=== PATIENT | male | born 1985 | race African-American/Black ===

== ENCOUNTER 2020-04-07 17:54 | Emergency (ER) | payer SELFPAY ==
[~2020-04-07] VITALS: Ht 172.7 cm; Wt 77.1 kg
--- OUTSIDE RECORDS SUMMARY | 2020-04-07 19:08 | XMS REPORT | Continuity of Care Document ---
Author Author [facility] t Organization [facility] Address [address] [place] [address] Phone Unavailable Care Team Providers Care Unit Manager Rn Name Role Phone NO, PCP PCP Unavailable Guero VELAZCO, Chaz Sandoval Attphys Problems Condition Name Condition Details Condition Category Status Onset Date Resolution Date Last Treatment Date Treating Clinician Comments Source Dysphagia Dysphagia Disease Active 2018-12-26 00:00:00 [facility] RUQ abdominal pain RUQ abdominal pain Disease Active 2017-10-09 00:00:0 0 [facility] Right flank pain Right flank pain Disease Active 2017-01-21 00:00:00 [facility] Hematuria Hematuria Disease Active 2017-01-13 00:00:00 [facility] Renal stones Renal stones Disease Active [facility] Neck pain Neck pain Disease Active [facility] Allergies, Adverse Reactions, Alerts This patient has no known allergies or adverse reactions. Family History Family Member Diagnosis Comments Start Date Stop Date Source Natural mother Cancer [facility] Social History Social Habit Start Date Stop Date Quantity Comments Source History of tobacco use Cigarette Smoker [facility] Alcohol Std Drinks Formerly [facility] SDOH Alcohol Binge [facility] Sex Assigned At [facility] Alcohol intake 2019-06-27 00:00:00 2019-06-27 00:00:00 Lifetime non-drinker (finding) [facility] History SDOH Food Worry 2019-05-29 00:00:00 2019-05-29 00:00:00 2 [facility] History SDOH Food Scarcity 2019-05-29 00:00:00 2019-05-29 00:00:00 2 [facility] SDOH Alcohol Frequency 2018-12-26 00:00:00 2018-12-26 00:00:0 0 1 [facility] Tobacco Comment 2018-12-26 00:00:00 2018-12-26 00:00:00 4 cigarettes/ day [facility] Smoking Status Start Date Stop Date Source Current every day smoker 2019-06-27 00:00:00 [facility] Medications Ordered Medication Name Filled Medication Name Start Date Stop Da te Current Medication? Ordering Clinician Indication Dosage Frequency Signature (SIG) Comments Components Source acetaminophen-codeine (TYLENOL/CODEINE #3) 300-30 mg per tab let 2017-01-21 00:00:00 Yes Right flank pain 1{tbl} Demetrius e 1 tablet by mouth every 4 hours as needed for Pain. [facility] ibuprofen (MOTRIN) 800 mg tablet 2017-01-13 00:00:00 Yes Kidney stones 800mg Take 1 tablet by mouth every 8 hours as needed for [facility] Vital Signs Vital Name Observation Time Observation Value Comments Source Systolic blood pressure 2019-06-27 10:47:00 136 mm[Hg] [facility] Diastolic blood pressure 2019-06-27 10:47:00 85 mm[Hg] [facility] Heart rate 2019-06-27 10:47:00 98 /min [facility] Body temperature 2019-06-27 10:47:00 35.89 Kayl[facility] Respiratory rate 2019-06-27 10:47:00 16 /min [facility] Body height 2019-06-27 10:47:00 172.7 cm [facility] Body weight 2019-06-27 10:47:00 66.497 kg [facility] BMI 2019-06-27 10:47:00 22.29 kg/m2 [facility] Procedures Procedure Date / Time Performed Performing Clinician Souranitha e URINALYSIS 2019-06-26 13:50:00 Lori Jack [facility] COMPREHENSIVE METABOLIC PANEL 2019-06-26 13:50:00 Saw Jack [facility] CBC/DIFF 2019-06-26 13:50:00 Lori Jack [facility] URINALYSIS 2019-06-26 13:50:00 Lori Jack [facility] CBC 2019-06-26 13:50:00 [facility] 2019-05-29 13:58:00 Lori Jack [facility] CHLAM/GC DNA AMPLI 2019-05-29 13:58:00 Lori Jack Kareen [facility] TRICHOMONAS VAGINALIS 2019-05-29 13:58:00 Lori Jack Johnson rris [facility] URINALYSIS 2019-05-29 13:58:00 Lori Jack [facility] CBC/DIFF 2019-05-29 12:39:00 Lori Jack [facility] COMPREHENSIVE METABOLIC PANEL 2019-05-29 12:39:00 Saw Jack [facility] LIPID PROFILE 2019-05-29 12:39:00 Lori Jack [facility] THYROID STIMULATING HORMONE (TSH) 2019-05-29 12:39:00 JackPatricia yap [facility] SYPHILIS SCREEN FOR INFECTION 2019-05-29 12:39:00 Saw Jack [facility] HEPATITIS PANEL 2019-05-29 12:39:00 Lori Jack [facility] HEMOGLOBIN A1C 2019-05-29 12:39:00 Lori Jack [facility] CBC 2019-05-29 12:39:00 Lori Jack [facility] GLUCOSE POC 2019-05-29 12:09:00 Unknown, [facility] POC RAPID HIV 2019-05-29 00:00:00 Lori Jack [facility] Plan of Care Planned Activity Planned Date Details Comments Source Future Scheduled Test 2020-04-10 00:00:00 IMM Influenza Seas onal Apr to September (>/= 19 yrs) [code = IMM Influenza Seasonal Apr to September (>/= 19 yrs)] [facility] Encounters Start Date/Time End Date/Time Encounter Type Admission Type Attendi [facility] Care Department Encounter ID Source 2019-07-14 13:40:00 2019-07-14 15:24:00 Departed Emergency Room [facility] [id number] [facility] 2019-06-27 10:40:56 2019-06-27 10:40:56 Outpatient [facility] [id number] [facility] 2019-06-26 13:49:44 2019-06-26 13:49:44 Outpatient [facility] [id number] [facility] 2019-06-26 13:17:55 2019-06-26 13:17:55 Outpatient [facility] [id number] [facility] 2019-06-26 00:00:00 2019-06-26 00:00:00 Outpatient [facility] [id number] [facility] 2019-05-29 12:39:02 2019-05-29 12:39:02 Outpatient [facility] [id number] [facility] 2019-05-29 11:54:58 2019-05-29 11:54:58 Outpatient [facility] [id number] [facility] 2019-05-29 00:00:00 2019-05-29 00:00:00 Outpatient [facility] [id number] [facility] 2018-12-26 11:51:04 2018-12-26 11:51:04 Emergency [facility] [id number] [facility] 2018-12-26 09:21:28 2018-12-26 09:21:28 Emergency [facility] [id number] [facility] 2018-11-14 15:06:06 2018-11-14 15:06:06 Emergency [facility] [id number] [facility] 2017-10-14 10:54:48 2017-10-14 10:54:48 Emergency [facility] [id number] [facility] 2017-10-13 19:30:00 2017-10-13 19:30:00 Emergency [facility] [id number] [facility] 2017-10-09 01:41:20 2017-10-09 01:41:20 Emergency [facility] [id number] [facility] 2017-10-09 00:08:00 2017-10-09 00:08:00 Emergency [facility] [id number] [facility] 2017-10-07 00:26:00 2017-10-07 00:26:00 Emergency [facility] [id number] [facility] 2017-06-30 12:07:12 2017-06-30 12:07:12 Outpatient [facility] [id number] [facility] 2017-01-21 14:42:47 2017-01-21 14:42:47 Emergency [facility] [id number] [facility] 2017-01-13 04:32:58 2017-01-13 04:32:58 Emergency [facility] [id number] [facility] 2017-01-13 03:36:25 2017-01-13 03:36:25 Emergency [facility] [id number] [facility] Results Test Description Test Time Test Comments Results Result Comments Source Urine Color 2019-07-14 14:24:00 Test Item Urine Color (test code = 5778-6) [facility] X[facility]-07-28 14:24:00* Test Item Value Reference Range Interpretation Comments Urine Clarity (test code = 66300-5) SL CLOUDY CLEAR H [facility] Specific [id number] 14:24:00 * Test Item Value Reference Range Interpretation Comments Urine Specific [place] (test code = 5811-5) 1.005 1.010-1.02 5 L [facility] [id number] 14:24:00* Test Item Value Reference Range Interpretation Comments Urine pH (test code = 77467-7) 6 5-7 [facility] Leukocyte [id number] 14:24:00* Test Item Value Reference Range Interpretation Comments Urine Leukocyte Esterase (test code = 5799-2) NEGATIVE NEGATIVE [facility] [id number] 14:24:00* Test Item Value Reference Range Interpretation Comments Urine Nitrite (test code = 44571-4) NEGATIVE NEGATIVE [facility] [id number] 14:24:00* Test Item Value Reference Range Interpretation Comments Urine Protein (test code = 5804-0) NEGATIVE NEGATIVE [facility] Glucose (UA)2019-07-14 14:24:00* Test Item Value Reference Range Interpretation Comments Urine Glucose (UA) (test code = 2349-9) NEGATIVE NEGATIVE [facility] [id number] 14:24:00* Test Item Value Reference Range Interpretation Comments Urine Ketones (test code = 24711-7) NEGATIVE NEGATIVE [facility] [id number] 14:24:00* Test Item Value Reference Range Interpretation Comments Urine Urobilinogen (test code = 57281-8) 0.2 0.2-1 [facility] [id number] 14:24:00* Test Item Value Reference Range Interpretation Comments Urine Bilirubin (test code = 1978-6) NEGATIVE NEGATIVE [facility] [id number] 14:24:00* Test Item Value Reference Range Interpretation Comments Urine Blood (test code = 48993-3) NEGATIVE NEGATIVE [facility] [id number] 14:24:00* Test Item Value Reference Range Interpretation Comments Urine WBC (test code = 5821-4) 0-5 0-5 [facility] [id number] 14:24:00* Test Item Value Reference Range Interpretation Comments Urine RBC (test code = 21385-1) 0-5 0-5 [facility] [id number] 14:24:00* Test Item Value Reference Range Interpretation Comments Urine Bacteria (test code = 55644-4) RARE NONE [facility] Epithelial [id number] 14:24:00 * Test Item Value Reference Range Interpretation Comments Urine Epithelial Cells (test code = 52250-9) FEW NONE [facility] RAPID [id number] 00:00:00* Test Item Value Reference Range Interpretation Comments Rapid HIV Result (test code = 8988) negative Rapid HIV Control (test code = 8989) pass [facility]
--- OUTSIDE RECORDS SUMMARY | 2020-04-07 19:08 | XMS REPORT | Clinical Summary ---
Author Author [facility] ict Organization [facility] ict Address Unknown Phone Unavailable Care Team Providers Care Bin Piler Name Role Phone Lori Jack ASSOCIATE PROFESSOR OF FORESTRY PCP Allergies No Known Allergies Medications End Date Status Medication Sig Dispensed Refills Start Date Active ibuprofen (MOTRIN) 800 mg Take 1 tablet 30 tablet 0 tabletIndications: by mouth 7 Hematuria, Kidney stones every 8 hours as needed for Pain. Active acetaminophen-codeine Take 1 tablet 15 tablet 0 (TYLENOL/CODEINE #3) by mouth 7 300-30 mg per every 4 hours tabletIndications: Right as needed for flank pain Pain. Active Problems Problem Noted Date Dysphagia 12/26/2018 RUQ abdominal pain 10/09/2017 Right flank pain 01/21/2017 Hematuria 01/13/2017 Renal stones Neck pain Encounters Care Team Description Date Type Specialty Lori Jack NP Encounter to discuss test results (Prima ry Dx); Abnormal urinalysis; Hematuria, unspecified type; History of renal stone; BMI 22.0-22.9, adult; Homeless 06/27/2019 Office Visit Family Practice Lori Jack NP 06/27/2019 Orders Only Family Practice Lori Jack NP Abnormal CBC (Primary Dx); Encounter to discuss test results; Hx of hematuria - per pt report - negative in May; Tobacco abuse; BMI 21.0-21.9, adult; Homeless 06/26/2019 Office Visit Family Practice Lori Jack NP Physical exam (Primary Dx); Renal stones, right - hx; NAFL (nonalcoholic fatty liver) - hx; Preventative health care; BMI 21.0-21.9, adult; Homeless; Tobacco use disorder; Tachycardia 05/29/2019 Office Visit Family Practice after 04/07/2019 Immunizations Name Administration Dates Next Due Influenza, 05/29/2019 (Deferred: Patie nt Refused) Vaccine<FLUCELVAX>(Multi- Dose) PPD 05/29/2019 (Deferred: Other ) Family History Medical History Relation Name Comments Cancer Mother Relation Name Status Comments Father Mother Social History Date Tobacco Use Types Packs/Day Years Used Current Every Day Smoker Cigarettes Smokeless Tobacco: Never Used Comments: 4 cigarettes/day Drinks/Week oz/Week Comments Alcohol Use Never Alcohol Habits Answer Date Recorded How often do you have a drink containing alcohol? Never 12/26/2018 How many drinks containing alcohol do you have on No t asked a typical day when you are drinking? How often do you have six or more drinks on one Not asked occasion? Food Insecurity Answer Date Recorded Within the past 12 months, you worried that your Sometimes true 05/29/2019 food would run out before you got money to buy more. Within the past 12 months, the food you bought Sometimes t rue 05/29/2019 just didn't last and you didn't have mo caty to get more. Sex Assigned at Date Recorded Not on file Industry Job Start Date Occupation Not on file Not on file Not on file Travel End Travel History Travel Start No recent travel history available. Last Filed Vital Signs Reading Time Taken Comments Vital Sign 136/85 06/27/2019 10:47 AM IRIDOLOGIST Blood Pressure 98 06/27/2019 10:47 AM IRIDOLOGIST Pulse 35.9 C (96.6 F) 06/27/2019 10:47 AM IRIDOLOGIST Temperature 16 06/27/2019 10:47 AM IRIDOLOGIST Respiratory Rate - - Oxygen Saturation - - Inhaled Oxygen Concentration 66.5 kg (146 lb 9.6 oz) 06/27/2019 10:47 AM IRIDOLOGIST Weight 172.7 cm (5' 8") 06/27/2019 10:47 AM IRIDOLOGIST Height 22.29 06/27/2019 10:47 AM IRIDOLOGIST Body Mass Index Plan of Treatment Health Maintenance Due Date Last Done Comments IMM Influenza Seasonal 04/10/2020Apr to September (>/= 19 yrs) Goals Goal Patient Associated Recent Progress Patient-Stat Aut hor Goal Type Problems ed? Obtain more stable housing Lifestyle On track (06/27/2019 No Wilian, situation 10:47 AM IRIDOLOGIST) Ellie Rodney LVN Procedures Comments Procedure Name Priority Date/Time Associated Diag nosis CBC Routine 06/26/2019 Abnormal CBC 1:50 PM IRIDOLOGIST URINALYSIS Routine 06/26/2019 Abnormal CBC 1:50 PM IRIDOLOGIST CBC/DIFF Routine 06/26/2019 Abnormal CBC 1:50 PM IRIDOLOGIST COMPREHENSIVE METABOLIC Routine 06/26/2019 Abnorm al CBC PANEL 1:50 PM IRIDOLOGIST URINALYSIS Routine 06/26/2019 Abnormal CBC 1:50 PM IRIDOLOGIST URINALYSIS Routine 05/29/2019 Preventative he alth care 1:58 PM IRIDOLOGIST TRICHOMONAS VAGINALIS Routine 05/29/2019 Preventa tive health care 1:58 PM IRIDOLOGIST CHLAM/GC DNA AMPLI Routine 05/29/2019 Preventativ e health care 1:58 PM IRIDOLOGIST URINALYSIS Routine 05/29/2019 Preventative he alth care 1:58 PM IRIDOLOGIST CBC Routine 05/29/2019 Preventative he alth care 12:39 PM IRIDOLOGIST HEMOGLOBIN A1C Routine 05/29/2019 Preventative he alth care 12:39 PM IRIDOLOGIST HEPATITIS PANEL Routine 05/29/2019 Preventative h ealth care 12:39 PM IRIDOLOGIST SYPHILIS SCREEN FOR Routine 05/29/2019 Preventati ve health care INFECTION 12:39 PM IRIDOLOGIST THYROID STIMULATING Routine 05/29/2019 Preventati ve health care HORMONE (TSH) 12:39 PM IRIDOLOGIST LIPID PROFILE Routine 05/29/2019 Preventative he alth care 12:39 PM IRIDOLOGIST COMPREHENSIVE METABOLIC Routine 05/29/2019 Preven tative health care PANEL 12:39 PM IRIDOLOGIST CBC/DIFF Routine 05/29/2019 Preventative he alth care 12:39 PM IRIDOLOGIST GLUCOSE POC Routine 05/29/2019 12:09 PM IRIDOLOGIST POC RAPID HIV Routine 05/29/2019 Preventative he alth care after 04/07/2019 Results * CBC/Diff (06/26/2019 1:50 PM IRIDOLOGIST) Only the most recent of 2 results within the time period is included. WBC 7.2 4.5 - 12.0 K/uL [facility] RBC 4.73 4.60 - 6.20 M/uL [facility] Hemoglobin 14.6 14.0 - 18.0 g/dL [facility] Hematocrit 46.7 40.0 - 54.0 % [facility] MCV 98.7 (H) 82.0 - 92.0 fL [facility] MCH 30.9 27.0 - 31.0 pg [facility] MCHC 31.3 (L) 32.0 - 36.0 g/dL [facility] RDW 44.8 (H) 35.1 - 43.9 fL [facility] Platelet 253 150 - 400 K/uL [facility] Mean Platelet 9.9 9.4 - 12.4 fL [facility] Volume [facility] Percent NRBC 0.0 % [facility] Neutrophil 47.7 34.0 - 67.9 % [facility] Lymphs 41.0 21.8 - 50.0 % [facility] Monocytes 8.2 5.3 - 12.0 % [facility] Eos 2.6 0.8 - 5.0 % [facility] Basos 0.4 0.2 - 1.2 % [facility] Immature 0.1 0.0 - 0.5 % [facility] Granulocytes [facility] Neutrophils 3.42 1.78 - 5.36 K/uL [facility] (Absolute) [facility] Lymphs 2.95 1.32 - 3.57 K/uL [facility] (Absolute) [facility] Monocytes(Absol 0.59 0.30 - 0.82 K/uL [facility] roe) [facility] Eos (Absolute) 0.19 0.04 - 0.54 K/uL [facility] Baso (Absolute) 0.03 0.01 - 0.08 K/uL [facility] Immature Grans 0.01 0.00 - 0.03 K/uL [facility] (Abs) [facility] Absolute NRBC 0.00 K/uL [facility] Specimen Blood Performing Organization Address [facility] Ph one Number [facility] [address] [place] [address] * Urinalysis (06/26/2019 1:50 PM IRIDOLOGIST) Only the most recent of 2 results within the time period is included. Color Yellow Colorless, Straw, [facility] Yellow [facility] Clarity Clear Clear [facility] Spec [place], 1.016 1.001 - 1.035 [facility] pH, Ur 6.0 5.0 - 8.0 [facility] Protein, Ur Negative Negative mg/dL [facility] Glucose, Ur Negative Negative mg/dL [facility] Ketone, Ur Negative Negative mg/dL [facility] Bilirubin, Ur Negative Negative mg/dL [facility] Nitrite, Ur Negative Negative [facility] Leukocyte Negative Negative mg/dL [facility] Blood, Ur 2+ (A) Negative mg/dL [facility] RBC 4 0 - 4 /HPF [facility] WBC <1 0 - 5 /HPF [facility] Mucous Present (A) None seen /HPF [facility] Urobilinogen, <1.0 <1.0 EU/dL [facility] Specimen Urine Performing Organization Address [facility] one Number [facility] [address] [place] [address] * Comprehensive Metabolic Panel (06/26/2019 1:50 PM IRIDOLOGIST) Only the most recent of 2 results within the time period is included. Sodium 145 136 - 145 mmol/L [facility] Potassium 4.3 3.5 - 5.1 mmol/L [facility] Chloride 106 98 - 107 mmol/L [facility] CO2 29 21 - 31 mmol/L [facility] Glucose 98 70 - 110 mg/dL [facility] Calcium 9.3 8.6 - 10.3 mg/dL [facility] Urea Nitrogen 8.0 7.0 - 25.0 mg/dL [facility] Creatinine 1.0 0.7 - 1.3 mg/dL [facility] Alkaline 48 34 - 104 U/L [facility] Phosphatase [facility] ALT 9 7 - 52 U/L [facility] AST 21 13 - 39 U/L [facility] Bilirubin, 1.9 (H) 0.2 - 1.2 mg/dL [facility] Total [facility] Total Protein 6.5 6.0 - 8.3 g/dL [facility] eGFR If Africn >90 >=90 mL/min/1.73 m2 [facility] Am [facility] Albumin 4.4 4.2 - 5.5 g/dL [facility] Anion Gap 10 5 - 16 mmol/L [facility] Specimen Blood Performing Organization Address [facility] one Number [facility] [address] [place] [address] * Trichomonas vaginalis (05/29/2019 1:58 PM IRIDOLOGIST) [facility] Trich Vaginalis Negative Negative [facility] Specimen Urine - Voided, urine Narrative Performed At Disclaimer: This test utilizes Cued erma red APTIMA Trichomanas vaginalis Assay by [facility] TMA from [employer] for qual itative nucleic acid amplification test (NAAT) for the detection of ribosome RN A (rRNA) from Trichomonas vaginalis. Performing Organization Address [facility] one Number [facility] [address] [place] [address] [phone] * CHLAM/GC DNA AMPLI [CHGC] (05/29/2019 1:58 PM IRIDOLOGIST) [facility] Chlamydia Negative Negative [facility] trachomatis [facility] N. gonorrhoeae Negative Negative [facility] Specimen Urine - Voided, urine Narrative Performed At This test utilizes [employer] Aptima Combo 2 Assay for target amplification of rRNA [facility] for the qualitative detection of Chlamy antolin trachomatis and Neisseria gonorrhoeae. Performing Organization Address [facility] one Number [facility] [address] [place] [address] * Syphilis Screen for Infection (05/29/2019 12:39 PM IRIDOLOGIST) [facility] TPA Negative Negative, Equivocal [facility] Final Report Negative Negative [facility] Specimen Blood Performing Organization Address [facility] one Number [facility] [address] [place] [address] * Hemoglobin A1C (05/29/2019 12:39 PM IRIDOLOGIST) [facility] Hemoglobin A1c 5.0 4.3 - 6.1 % [facility] Estimated 97 70 - 110 mg/dL [facility] Average Glucose [facility] Specimen Blood Performing Organization Address [facility] one Number [facility] [address] [place] [address] * TSH [Thyroid Stimulating Hormone] (05/29/2019 12:39 PM IRIDOLOGIST) [facility] TSH 1.54 0.45 - 5.33 uIU/mL [facility] Specimen Blood Performing Organization Address [facility] one Number [facility] [address] [place] [address] * Lipid Profile (05/29/2019 12:39 PM IRIDOLOGIST) [facility] Cholesterol 174.0 <=200.0 mg/dL [facility] Triglyceride 87 <150 mg/dL [facility] HDL 63.0 See Reference Range [facility] Narrative. mg/dL [facility] LDL 94 <100 mg/dL [facility] Comment: [facility] Optimal: < 100.0 mg/dL Near Optimal: 120-129 mg/dL Borderline: 130-159 mg/dL High: 160-189 mg/dL Very High: >=190 mg/dL Patient No [facility] Fasting? [facility] Specimen Blood Narrative Performed At Patient is not fasting. For a triglyceride result gre ater than 440 mg/dL, [facility] consider re-testing when the patient is in a fasting state. Performing Organization Address [facility] one Number [facility] [address] [place], [place] [id number] [phone] * Hepatitis Panel (05/29/2019 12:39 PM IRIDOLOGIST) [facility] Hepatitis C Negative Negative [facility] Virus (HCV) [facility] Antibody Hep B Surface Negative Negative [facility] Ag [facility] Hep A Vir Ab Negative Negative [facility] IgM [facility] Hep B Core Ab Negative Negative [facility] IgM [facility] Specimen Blood Performing Organization Address [facility] one Number [facility] [address] [place], [place] [id number] * POCT GLUCOSE POC docked device (05/29/2019 12:09 PM IRIDOLOGIST) [facility] Glucose POC 60 (L) 74 - 106 mg/dL [facility] Specimen Blood Performing Organization Address [facility] one Number [facility] [place] [address] LABORATORY [facility] [address] [place] [address] LABORATORY * POC RAPID HIV (05/29/2019) Rapid HIV negative Result Rapid HIV pass Control Specimen Blood after 04/07/2019
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
[2020-04-07 20:30] VITALS: BP 119/81
== END 2020-04-07 20:39 | disposition home or self-care (01) ==
LOC: ER 19:06
DX: S39.012A Strain of muscle, fascia and tendon of lower back, initial encounter (principal); M25.552 Pain in left hip; W18.30XA Fall on same level, unspecified, initial encounter; Y04.0XXA Assault by unarmed brawl or fight, initial encounter; F17.210 Nicotine dependence, cigarettes, uncomplicated
CPT/HCPCS: 99282